=== PATIENT | female | born 1965 | race African-American/Black ===

== ENCOUNTER 2021-01-01 13:40 | Emergency (ER) | payer OTHER, MEDICAID ==
[~2021-01-01] VITALS: Ht 165.1 cm; Wt 78.0 kg
[2021-01-01 14:11] VITALS: BP 144/82
[2021-01-01] MEDS ORDERED: KETOROLAC 60MG/2ML VIAL IM ONE (14:30)
[2021-01-01] MEDS ORDERED: IBUP-2029 MT (15:32)
== END 2021-01-01 16:09 | disposition home or self-care (01) ==
LOC: ER 13:40
DX: M54.5 Low back pain (principal); G89.29 Other chronic pain
CPT/HCPCS: 72100; 96372; 99283; J1885

== ENCOUNTER 2021-07-18 11:08 | Emergency (ER) | payer OTHER, MEDICAID ==
[~2021-07-18] VITALS: Ht 162.6 cm; Wt 82.0 kg
[~2021-07-18 11:08] MED LIST: IBUP-2029 MT
[2021-07-18] MEDS ORDERED: MECLIZINE 25MG TABLET PO ONE (11:15)
[2021-07-18 11:36] LABS: BASOPHILS % 0.5 % (0.0-2.0); EOSINOPHILS % 0.8 % (0.0-5.0); LYMPHOCYTES % 40.6 % (20.0-50.0); MEAN CORPUSCULAR HEMOGLOBIN 29.8 pg (28.0-32.0); MEAN CORPUSCULAR VOLUME 89.4 fL (81.0-99.0); MEAN PLATELET VOLUME 7.5 fl (7.4-10.4); MONOCYTES % 7.9 % (2.0-8.0); NEUTROPHILS % 50.2 % (40.0-76.0); PLATELET 200 x1000/uL (130-400); RED BLOOD CELL COUNT 4.36 mill/uL (4.2-5.4); RED CELL DISTRIBUTION WIDTH 13.3 % (11.6-14.6)
[2021-07-18 11:42] LABS: CHLORIDE 108 mEq/L (98-107)
[2021-07-18] MEDS ORDERED: SODIUM CHLORIDE 0.9% 1,000 ML IV ONE (11:45)
[2021-07-18 15:34] VITALS: BP 134/111
[2021-07-18] MEDS ORDERED: MECL-159 MT (15:57)
[2021-07-18] MEDS ORDERED: ONDA4TAB11 PO (15:57)
[2021-07-18] MEDS ORDERED: IBUP-2029 MT (15:57)
== END 2021-07-18 16:58 | disposition home or self-care (01) ==
LOC: ER 11:08
DX: R42 Dizziness and giddiness (principal); R11.2 Nausea with vomiting, unspecified; M54.50 Low back pain, unspecified
CPT/HCPCS: 36415; 70450; 71045; 80053; 83880; 84484; 85025; 93005; 99285; J7030; J8597

== ENCOUNTER 2023-01-30 16:48 | Emergency (ER) | payer BC, MEDICAID ==
[~2023-01-30] VITALS: Ht 165.1 cm; Wt 72.0 kg
[~2023-01-30 16:48] MED LIST changes: +MECL-159 MT; +ONDA4TAB11 PO
[2023-01-30 16:58] VITALS: BP 109/60; PULSE 97; RESP 18; TEMP 98.4; O2SAT 98
[2023-01-30] MEDS ORDERED: DOXY100T2 MT (18:43)
[2023-01-30] MEDS ORDERED: CEFTRIAXONE SODIUM 500 MG/VIAL IM ONE (18:45)
[2023-01-30 19:16] LABS: CLARITY URINE CLOUDY (CLEAR); COLOR URINE YELLOW (YELLOW); KETONES URINE TRACE (NEGATIVE); LEUKOCYTE ESTERASE URINE 3+ (NEGATIVE); NITRITE URINE POSITIVE (NEGATIVE); OCCULT BLOOD URINE 3+ (NEGATIVE); PH URINE 5.5 (4.5-8.0); PROTEIN URINE TRACE (NEGATIVE); SPECIFIC GRAVITY URINE 1.022 (1.005-1.030); UROBILINOGEN URINE 0.2 E.U./dL (0.2-1.0)
[2023-01-30] MEDS ORDERED: NITR-87 MT (19:30)
[2023-02-03 04:07] LABS: NEISSERIA GONORRHOEAE NAA Negative (Negative)
== END 2023-01-30 19:19 | disposition home or self-care (01) ==
LOC: ER 16:48
DX: N89.8 Other specified noninflammatory disorders of vagina (principal)
CPT/HCPCS: 99283; 87491; 87591; 81003; 87086; 87186; 87210; 96372; J0696

== ENCOUNTER 2024-02-29 17:55 | Emergency (ER) | payer MEDICAID, BC ==
[~2024-02-29] VITALS: Ht 162.6 cm; Wt 67.6 kg
[~2024-02-29 17:55] MED LIST changes: +DOXY100T2 MT; -MECL-159 MT; +MECL-299 MT; +NITR-87 MT; +ONDA-239 PO; -ONDA4TAB11 PO
[2024-02-29 18:17] VITALS: TEMP 98.7; O2SAT 99
[2024-02-29] MEDS: CEFTRIAXONE SODIUM 500MG VIAL IM ONE (18:56)
[2024-02-29] MEDS: LIDOCAINE HCL 1% 20ML VIAL INFIL ONE (19:07)
[2024-02-29] MEDS ORDERED: DOXY100C5 MT (19:09)
[2024-02-29] MEDS ORDERED: CARB15DR63 EACH EAR (19:09)
[2024-02-29] MEDS ORDERED: IBUP-2028 MT (19:09)
[2024-02-29 19:16] LABS: CLARITY URINE CLOUDY (CLEAR); COLOR URINE YELLOW (YELLOW); GLUCOSE URINE NEGATIVE (NEGATIVE); KETONES URINE NEGATIVE (NEGATIVE); LEUKOCYTE ESTERASE URINE 2+ (NEGATIVE); NITRITE URINE POSITIVE (NEGATIVE); OCCULT BLOOD URINE 2+ (NEGATIVE); PH URINE 5.5 (4.5-8.0); PROTEIN URINE NEGATIVE (NEGATIVE); SPECIFIC GRAVITY URINE 1.014 (1.005-1.030); UROBILINOGEN URINE 0.2 E.U./dL (0.2-1.0)
[2024-02-29 19:29] LABS: BACTERIA URINE 3+; SQUAMOUS EPITHELIAL CELL URINE 2+ /lpf (RARE/1+)
[2024-02-29 19:31] LABS: WBC URINE 15-25 /hpf (0-2)
[2024-02-29 19:54] LABS: BASOPHILS % 0.3 % (0.0-2.0); EOSINOPHILS % 0.6 % (0.0-5.0); HEMATOCRIT. 34.6 % (36.0-48.0); HEMOGLOBIN. 11.8 g/dL (12.0-16.0); LYMPHOCYTES % 40.6 % (20.0-50.0); MEAN CORPUSCULAR HEMOGLOBIN 30.8 pg (28.0-32.0); MEAN CORPUSCULAR HGB CONC 33.9 g/dL (31.0-37.0); MEAN CORPUSCULAR VOLUME 90.6 fL (81.0-99.0); MEAN PLATELET VOLUME 7.5 fl (7.4-10.4); MONOCYTES % 7.6 % (2.0-8.0); NEUTROPHILS % 50.9 % (40.0-76.0); PLATELET 177 x1000/uL (130-400); RED BLOOD CELL COUNT 3.82 mill/uL (4.2-5.4); RED CELL DISTRIBUTION WIDTH 13.7 % (11.6-14.6); WHITE BLOOD COUNT 3.1 x1000/uL (4.5-11.0)
[2024-02-29 20:09] LABS: ALANINE AMINOTRANSFERASE 11 IU/L (10-49); ALBUMIN 4.4 g/dL (3.2-4.8); ASPARTATE AMINOTRANSFERASE 18 IU/L (<34); BILIRUBIN DIRECT 0.2 mg/dL (<=3.0); BILIRUBIN TOTAL 0.4 mg/dL (0.1-1.0); PROTEIN TOTAL 7.2 g/dL (6.0-8.3)
[2024-02-29] MEDS ORDERED: NITR-87 MT (20:29)
[2024-02-29 20:31] LABS: CHLORIDE 104 mEq/L (98-107); POTASSIUM 3.4 mEq/L (3.5-5.1); SODIUM 138 mEq/L (136-145)
[2024-02-29 20:32] LABS: CALCIUM 9.3 mg/dL (8.7-10.4); CARBON DIOXIDE 28 mEq/L (21-32)
[2024-02-29 20:37] LABS: GLUCOSE 100 mg/dL (70-105); UREA NITROGEN BLOOD 13 mg/dL (9-23)
[2024-02-29 21:22] VITALS: BP 130/70; PULSE 80; RESP 15; O2SAT 99
[2024-03-03 09:10] LABS: CHLAMYDIA TRACHOMATIS NAA Negative (Negative); NEISSERIA GONORRHOEAE NAA Negative (Negative)
== END 2024-02-29 21:22 | disposition home or self-care (01) ==
LOC: ER 17:55
DX: N39.0 Urinary tract infection, site not specified (principal); H61.23 Impacted cerumen, bilateral; Z79.899 Other long term (current) drug therapy
CPT/HCPCS: 87491; 87591; 80076; 80048; 81003; 83690; 85025; 87086; 87186; 87210; 87077; 36415; 96372; 99284; J0696; Z7610 ×2

== ENCOUNTER 2025-04-05 11:26 | Emergency (ER) | payer MEDICAID ==
[~2025-04-05] VITALS: Ht 162.6 cm; Wt 72.0 kg
[~2025-04-05 11:26] MED LIST changes: +CARB15DR63 EACH EAR; +DOXY100C5 MT; +IBUP-1455 MT; +IBUP-2028 MT; -IBUP-2029 MT
[2025-04-05 11:36] VITALS: O2SAT 97
[2025-04-05 12:09] LABS: BASOPHILS % 0.2 % (0.0-2.0); EOSINOPHILS % 1.5 % (0.0-5.0); HEMATOCRIT. 37.9 % (36.0-48.0); HEMOGLOBIN. 12.8 g/dL (12.0-16.0); LYMPHOCYTES % 51.6 % (20.0-50.0); MEAN PLATELET VOLUME 7.5 fl (7.4-10.4); MONOCYTES % 5.9 % (2.0-8.0); NEUTROPHILS % 40.8 % (40.0-76.0); PLATELET 166 x1000/uL (130-400); RED BLOOD CELL COUNT 4.21 mill/uL (4.2-5.4); RED CELL DISTRIBUTION WIDTH 13.3 % (11.6-14.6)
[2025-04-05 12:22] LABS: CREATININE 1.1 mg/dL (0.6-1.0)
[2025-04-05 12:23] LABS: UREA NITROGEN BLOOD 16 mg/dL (9-23)
[2025-04-05 12:24] LABS: ASPARTATE AMINOTRANSFERASE 18 IU/L (<34)
[2025-04-05 12:25] LABS: BILIRUBIN DIRECT 0.2 mg/dL (<=3.0); BILIRUBIN TOTAL 0.6 mg/dL (0.1-1.0); PROTEIN TOTAL 7.8 g/dL (6.0-8.3)
[2025-04-05 14:50] LABS: CLARITY URINE CLEAR (CLEAR); COLOR URINE YELLOW (YELLOW); GLUCOSE URINE NEGATIVE (NEGATIVE); KETONES URINE NEGATIVE (NEGATIVE); LEUKOCYTE ESTERASE URINE 1+ (NEGATIVE); NITRITE URINE NEGATIVE (NEGATIVE); OCCULT BLOOD URINE 2+ (NEGATIVE); PH URINE 5.5 (4.5-8.0); PROTEIN URINE NEGATIVE (NEGATIVE); SPECIFIC GRAVITY URINE 1.022 (1.005-1.030); UROBILINOGEN URINE 0.2 E.U./dL (0.2-1.0)
[2025-04-05] MEDS: CEFTRIAXONE SODIUM 500MG VIAL IM ONE (14:56)
[2025-04-05 14:59] LABS: BACTERIA URINE 1+; SQUAMOUS EPITHELIAL CELL URINE 2+ /lpf (RARE/1+); YEAST URINE NONE SEEN
[2025-04-05] MEDS ORDERED: DOXY100C5 MT (15:11)
[2025-04-05] MEDS ORDERED: METR-167 MT (15:11)
[2025-04-05 15:28] VITALS: BP 104/69; PULSE 78; RESP 18; TEMP 36.7; O2SAT 97
[2025-04-08 04:07] LABS: CHLAMYDIA TRACHOMATIS NAA Negative (Negative); NEISSERIA GONORRHOEAE NAA Negative (Negative)
== END 2025-04-05 15:28 | disposition home or self-care (01) ==
LOC: ER 11:26
DX: D25.9 Leiomyoma of uterus, unspecified (principal); N39.0 Urinary tract infection, site not specified; Z11.3 Encounter for screening for infections with a predominantly sexual mode of transmission; Z79.899 Other long term (current) drug therapy
CPT/HCPCS: 99285; 76830; 76856; 86592; 87491; 87591; 80076; 80048; 81003; 83690; 85025; 87210; 36415; 96372; J0696